=== PATIENT | female | born 1960 | race Caucasian/White ===

== ENCOUNTER 2022-04-22 09:10 | Outpatient (CLI) | payer BC | END 2022-04-22 09:11 | disposition home or self-care (01) | LOC: BICRAD 09:10 | PROVIDERS: ATTEND Internal Medicine Medical Oncology | DX: C34.12 Malignant neoplasm of upper lobe, left bronchus or lung (principal) | CPT/HCPCS: 71046 ==

== ENCOUNTER 2022-09-22 09:19 | Outpatient (CLI) | payer BC ==
[2022-09-22] MEDS ORDERED: Magnevist 469MG/ML 20 ML VIAL ONE (15:45)
== END 2022-09-22 09:20 | disposition home or self-care (01) ==
LOC: TBSIIMAG 09:19
PROVIDERS: ATTEND Neurological Surgery
DX: D49.6 Neoplasm of unspecified behavior of brain (principal)
CPT/HCPCS: 70553; A9579